=== PATIENT | female | born 1990 | race Caucasian/White ===

== ENCOUNTER 2016-10-25 22:22 | Emergency (ER) | payer OTHER ==
[~2016-10-25] VITALS: Ht 162.6 cm; Wt 116.0 kg
[2016-10-25 22:29] VITALS: Ht 162.6 cm; Wt 116.0 kg
[2016-10-26] MEDS ORDERED: traMADol 50 MG TAB PO ONE (01:00)
[2016-10-26] MEDS ORDERED: TRAM50TA2 PO (01:00)
--- NOTE | 2016-10-26 01:07 | ERD ---
ER Documentation Chief Complaint Date/Time DATE: 10/26/16 TIME: 01:03 Chief Complaint left arm pain, pt donated blood plasma today using left AC HPI 26-year-old female presents to emergency department for complaints of left arm pain, more in the antecubital area and left upper arm area after donating blood today. Patient had intravenous catheter inserted in the left antecubital area for donating blood, started to have the pain after the procedure. Patient described the pain as throbbing pain, 6/10 scale, is worse upon touching the area. Patient denies any redness, had swelling earlier but it has gone down after applying warm compresses on affected area. ROS All systems reviewed and are negative except as per history of present illness. Medications Home Meds Active Scripts Tramadol HCl (Tramadol HCl) 50 Mg Tablet, 50 MG PO Q6 for SEVERE PAIN LEVEL 7-10 , #20 TAB Prov:ORALIA HIGHTOWER NP 10/26/16 Allergies Allergies: Coded Allergies: acetaminophen (Verified Allergy, Unknown, 10/25/16) ibuprofen (Verified Allergy, Unknown, 10/25/16) PMhx/Soc Medical and Surgical Hx: pt denies Medical Hx, pt denies Surgical Hx FmHx Family History: No coronary disease, No diabetes, No other Physical Exam Vitals Vital Signs Date Time Temp Pulse Resp B/P Pulse Ox O2 Delivery O2 Flow Rate FiO2 10/25/16 22:29 98.2 86 20 134/80 100 Physical Exam GENERAL: The patient is well developed and appropriate for usual state of health, in no apparent distress. CHEST: Clear to auscultation bilaterally. There are no rales, wheezes or rhonchi. HEART: Regular rate and rhythm. No murmurs, clicks, rubs or gallops. No S3 or S4. ABDOMEN: Soft, nontender and nondistended. Good bowel sounds. No rebound or guarding. No gross peritonitis. No gross organomegaly or masses. No Patel sign or McBurney point tenderness. BACK: No midline or flank tenderness. EXTREMITIES: Mild tenderness on palpation on the left antecubital area, no redness, no swelling, no inflamed veins noted. Equal pulses bilaterally. There is no peripheral clubbing, cyanosis or edema. No focal swelling or erythema. Full range of motion. Grossly neurovascularly intact. NEURO: Alert and oriented. Cranial nerves 2-12 intact. Motor strength in all 4 extremities with 5/5 strength. Sensation grossly intact. Normal speech and gait. SKIN: There is no apparent rash or petechia. The skin is warm and dry. HEMATOLOGIC AND LYMPHATIC: There is no evidence of excessive bruising or lymphedema. No gross cervical, axillary, or inguinal lymphadenopathy. Results 24 hrs Current Medications Medications (Trade) Dose Ordered Sig/Ashley Route PRN Reason Start Time Stop Time Status Last Admin Dose Admin Tramadol HCl (Ultram) 50 mg ONCE ONCE PO 10/26/16 01:00 10/26/16 01:01 DC Patient was given medication for pain here in emergency department, after treatment, patient verbalized feeling much better. Patient's pain is improved. Procedures/MDM Medical decision making: Patient's pain nonspecific at this time, possible from IV insertion, can be from contusion, can be also early form of the bite use. At this time, no symptoms of any infection, no symptoms of sepsis at this time. Patient appears well and is hemodynamically stable. No symptoms of any neurovascular compromise. Patient was given for tramadol for pain, was advised to apply warm compresses on affected area, elevate affected area. Patient is advised to return to emergency department for any worsening symptoms, worsening pain, swelling, redness, or any other worsening symptoms. Otherwise, advised to follow up with primary care doctor in 2-3 days for reevaluation of symptoms. Disposition: Home. Stable Departure Diagnosis: Primary Impression: Left arm pain Condition: Stable Patient Instructions: Pain Management Additional Instructions: elevate, warm compress, take meds as prescribed ORALIA HIGHTOWER NP Oct 26, 2016 01:07
== END 2016-10-26 01:36 | disposition home or self-care (01) ==
LOC: FTE 22:22
DX: M79.602 Pain in left arm (principal)
CPT/HCPCS: Z7502; Z7610; 99283